=== PATIENT | male | born 1950 | race Two or more races ===

== ENCOUNTER 2018-11-06 08:20 | Inpatient (IN) | payer BC ==
--- NOTE | 2018-11-06 08:46 | PDOC ---
History of Present Illness - General Chief Complaint: Wound Stated Complaint: SENT BY PCP Time Seen by Provider: 11/06/18 08:43 History Source: Patient - History of Present Illness Initial Comments: 11/06/18 09:18 The patient is a 67 year old male with a PMH of AFib (on Eliquis),CHF and HTN who presents for R 1st toe wound. Wound has been present for two months Has been following with a loan broker (Dr. Strickland) with multiple failed outpatient antibiotic trials and was instructed to come to the ED for surgical resection. No fevers/chills. Pain is 1/10. The patient denies chest pain, abdominal pain, nausea/vomiting, diarrhea/ constipation, dysuria/hematuria. NKDA Past History - Past Medical History Allergies/Adverse Reactions: Allergies Allergy/AdvReac Type Severity Reaction Status Date / Time No Known Allergies Allergy Verified 11/06/18 08:27 Home Medications: Ambulatory Orders Apixaban [Eliquis] 5 mg PO BID 11/06/18 Carvedilol 25 mg PO BID 11/06/18 Digoxin [Lanoxin -] 0.125 mg PO DAILY 11/06/18 Furosemide [Lasix] 80 mg PO DAILY 11/06/18 Metolazone 2.5 mg PO DAILY 11/06/18 Pantoprazole Sodium [Protonix] 40 mg PO DAILY 11/06/18 Potassium Chloride [K-Dur -] 20 meq PO BID 11/06/18 Ramipril 10 mg PO DAILY 11/06/18 Sucralfate [Carafate -] 1 gm PO QID 11/06/18 Cardiac Disorders: Yes (CARDIAC STENT) COPD: No - Surgical History Abdominal Surgery: (GASTRIC BYPASS) Cardiac Surgery: (STENT) Cholecystectomy: Yes - Suicide/Smoking/Psychosocial Hx Smoking History: Former smoker Have you smoked in the past 12 months: No If you are a former smoker, when did you quit?: 15 YRS Information on smoking cessation initiated: No Hx Alcohol Use: Yes (GLASS OF WINE PER NIGHT) Drug/Substance Use Hx: No Review of Systems - Review of Systems Constitutional: No: Chills, Fever HEENTM: No: Recent change in vision Respiratory: No: Cough, Shortness of Breath Cardiac (ROS): No: Chest Pain, Lightheadedness, Palpitations ABD/GI: No: Constipated, Diarrhea, Nausea, Vomiting *Physical Exam - Vital Signs Last Vital Signs Temp Pulse Resp BP Pulse Ox 98.3 F 88 16 96/58 L 97 11/06/18 08:24 11/06/18 08:24 11/06/18 08:24 11/06/18 08:24 11/06/18 08:24 - Physical Exam General Appearance: Yes: Nourished, Appropriately Dressed HEENT: positive: Normal Voice, Hearing Grossly Normal Neck: positive: Trachea midline, Supple Respiratory/Chest: positive: Lungs Clear, Normal Breath Sounds Cardiovascular: positive: S1, S2 Gastrointestinal/Abdominal: positive: Normal Bowel Sounds, Soft Extremity: positive: Normal Capillary Refill, Normal Inspection, Other (L hallux Stage III 0.8 cm diameter wound; mild purulent discharge, 2+ DP pulse) Integumentary: positive: Normal Color, Dry, Warm Neurologic: positive: rig manager II-XII NML intact, Fully Oriented, Alert Heart Score/ECG Review - ECG Impressions Comment:: 11/06/18 10:01 HR 79, AFib with no FINA/STD/TWI ED Treatment Course - LABORATORY CBC & Chemistry Diagram: 11/06/18 09:41 11/06/18 09:41 Medical Decision Making - Medical Decision Making 11/06/18 09:21 67 year old male with L hallux wound. BP 96/85 - patient notes h/o LBP, will check VS every 2 hours PE shows no signs of cellulitis; will send wound cultures and obtain pre-op labs. Patient declining pain control at this time. 11/06/18 09:38 Case d/w Dr. Javed - will admit for surgical intervention 11/06/18 10:01 EKG shows AFib as documented in EKG section of EMR 11/06/18 10:12 Consults placed as per Dr. Merida: ID (Dr. Villalobos), Vascular (Dr. Isaacs); MRI pending Clinical Impression: Stage II hallux ulcer *DC/Admit/Observation/Transfer Diagnosis at time of Disposition: Skin ulcer of left great toe - Discharge Dispostion Condition at time of disposition: Fair Decision to Admit order: Yes - Referrals - Patient Instructions - Post Discharge Activity
--- NOTE | 2018-11-06 09:42 | PDOC ---
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 ENT: Ears normal, nares patent, oropharynx clear without exudates. Moist mucous membranes. NECK: Normal range of motion, supple LUNGS: Breath sounds equal, clear to auscultation bilaterally. No wheezes, and no crackles. HEART:Regular rate and rhythm, normal S1 and S2 without murmur, rub or gallop. ABDOMEN: Soft, nontender, normoactive bowel sounds. EXTREMITIES: (+) bilateral pedal edema, (+) venous stasis changes NEUROLOGICAL: Cranial nerves II through XII grossly intact. Normal speech. No focal neurological deficits. SKIN: Warm, Dry, 0.8 cm diameter wound, mild purulent discharge, 2+ DP pulse 11/06/18 11:13 - Medical Decision Making 11/06/18 09:59 EKG: Afib rate of 79 bpm, RBBB, right axis, no st elevation or depressions 11/06/18 11:14 67 yo M sent to the ER for assessment of non healing foot ulcer Plan for surgical intervention per podiatry 11/06/18 11:15 Laboratory Tests 11/06/18 11/06/18 09:41 09:41 WBC 8.0 Hgb 11.7 Hct 36.6 Plt Count 203 BUN 23.2 H Creatinine 1.1 11/06/18 11:15 Plan for admission is MRI of the foot ? Abx 11/06/18 11:18 Clinical Impression: non healing foot ulcer, initial presentation
[2018-11-06 09:58] LABS: BASO % 0.6 % (0-2.0); EOS % 2.4 % (0-4.5); HEMATOCRIT 36.6 % (35.4-49); HEMOGLOBIN 11.7 GM/dL (11.7-16.9); MCH 24.9 pg (25.7-33.7); MEAN CELL VOLUME 77.8 fl (80-96); MEAN PLT VOLUME 8.5 fl (7.5-11.1); MONO % 7.3 % (3.8-10.2); NEUT % 76.7 % (42.8-82.8); PLATELET COUNT 203 K/MM3 (134-434); RBC 4.71 M/mm3 (4.00-5.60); RDW 15.6 % (11.9-15.9)
[2018-11-06 10:10] LABS: INR 1.26 (0.83-1.09); PROTHROMBIN TIME (PATIENT) 14.9 SEC (9.7-13.0)
[2018-11-06 11:00] LABS: ALBUMIN 4.1 g/dl (3.4-5.0); ALK PHOS 96 U/L (45-117); ANION GAP 6 MMOL/L (8-16); BILIRUBIN,TOTAL 0.6 mg/dL (0.2-1); BLOOD UREA NITROGEN 23.2 mg/dL (7-18); CALCIUM 8.7 mg/dL (8.5-10.1); CHLORIDE 98 mmol/L (98-107); CO2 31 mmol/L (21-32); CREATININE 1.1 mg/dL (0.55-1.3); GLUCOSE,RANDOM 113 mg/dL (74-106); POTASSIUM 3.8 mmol/L (3.5-5.1); SGOT/AST 24 U/L (15-37); SGPT/ALT 23 U/L (13-61); SODIUM 136 mmol/L (136-145); TOT PROT 7.3 g/dl (6.4-8.2)
--- NOTE | 2018-11-06 11:24 | HP ---
Admitting History and Physical - Primary Care Physician PCP: Miko Christiansen - Admission Chief Complaint: Wound to great toe L foot History of Present Illness: Patient is a 67 y/o male with past medical history of Afib, HTN, CHF. Patient presents to ER with L foot great toe wound. Patient was following up with private duty rn 2 days ago and was instructed to come to ER for possible surgery. Pain is exacerbated with walking and prolonged standing. Patient says he was treated with antibiotics in past for wound but still was not healing properly. History Source: Patient Limitations to Obtaining History: No Limitations - Past Medical History Cardiovascular: Yes: CAD, CHF, HTN - Past Surgical History Past Surgical History: Yes: Bypass, Cholecystectomy, Stent - Smoking History Smoking history: Former smoker Have you smoked in the past 12 months: No If you are a former smoker, when did you quit?: 15 YRS - Alcohol/Substance Use Hx Alcohol Use: Yes (GLASS OF WINE PER NIGHT) - Social History ADL: Independent History of Recent Travel: No Home Medications - Allergies Allergies/Adverse Reactions: Allergies Allergy/AdvReac Type Severity Reaction Status Date / Time No Known Allergies Allergy Verified 11/06/18 08:27 - Home Medications Home Medications: Ambulatory Orders Apixaban [Eliquis] 5 mg PO BID 11/06/18 Carvedilol 25 mg PO BID 11/06/18 Digoxin [Lanoxin -] 0.125 mg PO DAILY 11/06/18 Furosemide [Lasix] 80 mg PO DAILY 11/06/18 Metolazone 2.5 mg PO DAILY 11/06/18 Pantoprazole Sodium [Protonix] 40 mg PO DAILY 11/06/18 Potassium Chloride [K-Dur -] 20 meq PO BID 11/06/18 Ramipril 10 mg PO DAILY 11/06/18 Sucralfate [Carafate -] 1 gm PO QID 11/06/18 Review of Systems - Review of Systems Constitutional: reports: No Symptoms Eyes: reports: No Symptoms HENT: reports: No Symptoms Neck: reports: No Symptoms Cardiovascular: reports: No Symptoms Respiratory: reports: No Symptoms Gastrointestinal: reports: No Symptoms Genitourinary: reports: No Symptoms Breasts: reports: No Symptoms Reported Musculoskeletal: reports: Other (toe pain) Integumentary: reports: No Symptoms Neurological: reports: Numbness (hands/feet). denies: No Symptoms Endocrine: reports: No Symptoms Hematology/Lymphatic: reports: No Symptoms Psychiatric: reports: No Symptoms Physical Examination Vital Signs: Vital Signs Temperature 98.3 F 11/06/18 08:24 Pulse Rate 88 11/06/18 08:24 Respiratory Rate 16 11/06/18 08:24 Blood Pressure 98/62 11/06/18 10:05 O2 Sat by Pulse Oximetry (%) 97 11/06/18 08:24 Constitutional: Yes: No Distress, Calm Eyes: Yes: Conjunctiva Clear HENT: Yes: Atraumatic Neck: Yes: Supple Cardiovascular: Yes: Regular Rate and Rhythm Respiratory: Yes: Regular, CTA Bilaterally Gastrointestinal: Yes: Normal Bowel Sounds, Soft Musculoskeletal: Yes: Other (toe pain) Extremities: Yes: WNL Edema: Yes Edema: LLE: 2+ Wound/Incision: Yes: Dressing Dry and Intact, Other (L great toe posterior circular wound) Neurological: Yes: Alert, Oriented Psychiatric: Yes: Alert, Oriented Labs: CBC, BMP 11/06/18 09:41 11/06/18 09:41 Problem List - Problems (1) Skin ulcer of left great toe Assessment/Plan: -ID, Podiatry, Vascular on board -daily dressing changes -Collegenase -Ceftriaxone -no leukocytosis -afebrile Code(s): L97.529 - NON-PRESSURE CHRONIC ULCER OTH PRT LEFT FOOT W UNSP SEVERITY (2) HTN (hypertension) Assessment/Plan: -Carvedilol, Ramipril -low Na diet Code(s): I10 - ESSENTIAL (PRIMARY) HYPERTENSION (3) CAD (coronary artery disease) Assessment/Plan: -Eliquis Code(s): I25.10 - ATHSCL HEART DISEASE OF [place] CORONARY ARTERY W/O ANG PCTRS (4) CHF (congestive heart failure) Assessment/Plan: -Furosemide, Zaroxolyn, Digoxin -1L fluid restriction -daily weights -monitor electrolyte due to diuretic use Code(s): I50.9 - HEART FAILURE, UNSPECIFIED (5) GERD (gastroesophageal reflux disease) Assessment/Plan: -Pantoprazole, Carafate Code(s): K21.9 - GASTRO-ESOPHAGEAL REFLUX DISEASE WITHOUT ESOPHAGITIS Assessment/Plan see problem list SCDs
[2018-11-06] MEDS: CARVEDILOL 25 MG TABLET (FP) PO SCH ×2 (11:35→21:28)
[2018-11-06] MEDS: POTASSIUM CHLORIDE TABS 20 MEQ TABLET.ER (FP) PO SCH ×2 (11:35→21:28)
[2018-11-06] MEDS: RAMIPRIL 5 MG CAPSULE (FP) PO SCH (11:35)
[2018-11-06] MEDS: FUROSEMIDE 40 MG TABLET (FP) PO SCH (11:36)
[2018-11-06] MEDS: DIGOXIN 0.125 MG TABLET (FP) PO SCH (11:38)
[2018-11-06] MEDS: APIXABAN 5 MG TABLET PO SCH ×2 (12:34→21:28)
[2018-11-06] MEDS: COLLAGENASE CLOSTRIDIUM HIST. 30 GRAMS TUBE TP SCH (12:35)
[2018-11-06 13:23] VITALS: BMI 34.2
--- NOTE | 2018-11-06 14:34 | CON.ID ---
Consult - Past Medical History Cardio/Vascular: Yes: CAD, CHF, HTN - Past Surgical History Past Surgical History: Yes: Bypass, Cholecystectomy, Stent - Alcohol/Substance Use Hx Alcohol Use: Yes (GLASS OF WINE PER NIGHT) - Smoking History Smoking history: Current every day smoker Have you smoked in the past 12 months: Yes Aproximately how many cigarettes per day: 40 If you are a former smoker, when did you quit?: 15 YRS - Social History ADL: Independent History of Recent Travel: No Home Medications - Allergies Allergies/Adverse Reactions: Allergies Allergy/AdvReac Type Severity Reaction Status Date / Time No Known Allergies Allergy Verified 11/06/18 08:27 - Home Medications Home Medications: Ambulatory Orders Apixaban [Eliquis] 5 mg PO BID 11/06/18 Carvedilol 25 mg PO BID 11/06/18 Digoxin [Lanoxin -] 0.125 mg PO DAILY 11/06/18 Furosemide [Lasix] 80 mg PO DAILY 11/06/18 Metolazone 2.5 mg PO DAILY 11/06/18 Pantoprazole Sodium [Protonix] 40 mg PO DAILY 11/06/18 Potassium Chloride [K-Dur -] 20 meq PO BID 11/06/18 Ramipril 10 mg PO DAILY 11/06/18 Sucralfate [Carafate -] 1 gm PO QID 11/06/18 Physical Exam Vital Signs: Vital Signs Temperature 97.9 F 11/06/18 13:10 Pulse Rate 80 11/06/18 13:10 Respiratory Rate 18 11/06/18 13:10 Blood Pressure 98/56 L 11/06/18 13:10 O2 Sat by Pulse Oximetry (%) 95 11/06/18 13:10 Labs: CBC, BMP 11/06/18 09:41 11/06/18 09:41
[2018-11-06] MEDS ORDERED: DEXTROSE 5%-WATER 100 ML IVPB ONE (16:18)
[2018-11-06] MEDS ORDERED: cefTRIAXone SODIUM 1 GM VIAL ONE (16:18)
[2018-11-06] MEDS: SUCRALFATE 1 GM TABLET (FP) PO SCH ×3 (16:18→21:28)
[2018-11-06] MEDS: CEFTRIAXONE 1 GM in DEXTROSE 5%-WATER 100 ML IVPB SCH (16:19)
--- NOTE | 2018-11-06 16:45 | EKG ---
Test Reason : Blood Pressure : / mmHG Vent. Rate : 079 BPM Atrial Rate : 097 BPM P-R Int : 000 ms QRS Dur : 150 ms QT Int : 402 ms P-R-T Axes : 000 102 006 degrees QTc Int : 460 ms ATRIAL FIBRILLATION RIGHT BUNDLE BRANCH BLOCK INFERIOR INFARCT , AGE UNDETERMINED ANTEROLATERAL INFARCT , AGE UNDETERMINED ABNORMAL ECG NO PREVIOUS ECGS AVAILABLE Confirmed by BRICE PARSON MD ([id number]) on 11/06/2018 4:44:48 PM Referred By: Confirmed By:BRICE PARSON MD
--- NOTE | 2018-11-06 20:49 | CONSULT ---
Consult Consult Specialty:: Podiatry Reason for Consultation:: Pt sent to me by PMD for chronic ulceration left 3rd toe for 3 months, - History of Present Illness History of Present Illness: ulceration left third toe 3 months duration. - History Source History Provided By: Patient - Past Medical History Cardio/Vascular: Yes: CAD, CHF, HTN - Past Surgical History Past Surgical History: Yes: Bypass, Cholecystectomy, Stent - Alcohol/Substance Use Hx Alcohol Use: Yes (GLASS OF WINE PER NIGHT) - Smoking History Smoking history: Former smoker Have you smoked in the past 12 months: No Aproximately how many cigarettes per day: 40 If you are a former smoker, when did you quit?: 15 YRS - Social History ADL: Independent History of Recent Travel: No Home Medications - Allergies Allergies/Adverse Reactions: Allergies Allergy/AdvReac Type Severity Reaction Status Date / Time No Known Allergies Allergy Verified 11/06/18 08:27 - Home Medications Home Medications: Ambulatory Orders Apixaban [Eliquis] 5 mg PO BID 11/06/18 Carvedilol 25 mg PO BID 11/06/18 Digoxin [Lanoxin -] 0.125 mg PO DAILY 11/06/18 Furosemide [Lasix] 80 mg PO DAILY 11/06/18 Metolazone 2.5 mg PO DAILY 11/06/18 Pantoprazole Sodium [Protonix] 40 mg PO DAILY 11/06/18 Potassium Chloride [K-Dur -] 20 meq PO BID 11/06/18 Ramipril 10 mg PO DAILY 11/06/18 Sucralfate [Carafate -] 1 gm PO QID 11/06/18 Physical Exam Vital Signs: Vital Signs Temperature 97.9 F 11/06/18 13:10 Pulse Rate 80 11/06/18 13:10 Respiratory Rate 18 11/06/18 13:10 Blood Pressure 98/56 L 11/06/18 13:10 O2 Sat by Pulse Oximetry (%) 95 11/06/18 13:10 Extremities: Yes: Other (+grade 3 wound left hallux, severe HAV, +tracking, + trackbound, +severe edema b/l feet and ankles) Labs: CBC, BMP 11/06/18 09:41 11/06/18 09:41 Assessment/Plan om? severe edema b/l amkles hav MRI to r/o om. If no om, once wound healed, patient requires surgical repair of deformity left foot. If om will go with IVABX and HBO with wound care. Will follow. CRP, ESR, ordered. Santyl to wound. Evaluation by Vascular for clearance and tx for possible intervention by me to repair deformity left foot. will follow. Awaiting MRI result.
[2018-11-06] MEDS ORDERED: PT OWN MED DRAWER 7, Y5N ONE (21:21)
[2018-11-07 07:38] LABS: BASO % 0.6 % (0-2.0); EOS % 3.5 % (0-4.5); HEMATOCRIT 32.9 % (35.4-49); HEMOGLOBIN 10.6 GM/dL (11.7-16.9); LYMPH % 19.2 % (8-40); MCHC 32.3 g/dl (32.0-35.9); MEAN CELL VOLUME 77.3 fl (80-96); MEAN PLT VOLUME 8.5 fl (7.5-11.1); MONO % 8.1 % (3.8-10.2); NEUT % 68.6 % (42.8-82.8); PLATELET COUNT 176 K/MM3 (134-434); RBC 4.26 M/mm3 (4.00-5.60); RDW 15.5 % (11.9-15.9); WHITE BLOOD COUNT 7.6 K/mm3 (4.0-10.0)
[2018-11-07 08:28] LABS: ALBUMIN 3.5 g/dl (3.4-5.0); BILIRUBIN,TOTAL 0.6 mg/dL (0.2-1); BLOOD UREA NITROGEN 18.6 mg/dL (7-18); CALCIUM 8.6 mg/dL (8.5-10.1); CREATININE 0.8 mg/dL (0.55-1.3); MAGNESIUM 2.1 mg/dL (1.8-2.4); PHOSPHOROUS 3.5 mg/dL (2.5-4.9); POTASSIUM 3.8 mmol/L (3.5-5.1); TOT PROT 6.2 g/dl (6.4-8.2)
--- NOTE | 2018-11-07 08:55 | CONSULT ---
- Consultation REQUESTING PROVIDER: CONSULT REQUEST: We have been asked to surgically evaluate this patient for ( vascular evaluation). PCP:Selina Javed HISTORY OF PRESENT ILLNESS: 67 y/o M w/ PMHx Afib on Eliquis, CAD s/p cardiac stent, HTN, CHF, prior morbid obesity, s/p bypass a/w L foot great toe wound. Pt report he saw his Investment Recovery Technician 2 days ago and was instructed to come to ER for possible surgery. Reports he was unaware he has any wounds on his foot. Reports some pain is exacerbated with walking and prolonged standing. 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 States he has had some issues in the past with venous stasis ulcers and edema, however was treated at that time (>15 years ago) with Unna boots, ulcers healed without issue and has not had recurrence since. Has remote h/o tobacco abuse many years ago, no known vascular disease/prior vascular evaluation. Denies h/o DVT/pe in the past. PMHx: as above PSHx: gastric bypass, appendectomy, cholecystectomy, coronary stent Home Medications Medication Instructions Recorded Apixaban [Eliquis] 5 mg PO BID 11/06/18 Carvedilol 25 mg PO BID 11/06/18 Digoxin [Lanoxin -] 0.125 mg PO DAILY 11/06/18 Furosemide [Lasix] 80 mg PO DAILY 11/06/18 Metolazone 2.5 mg PO DAILY 11/06/18 Pantoprazole Sodium [Protonix] 40 mg PO DAILY 11/06/18 Potassium Chloride [K-Dur -] 20 meq PO BID 11/06/18 Ramipril 10 mg PO DAILY 11/06/18 Sucralfate [Carafate -] 1 gm PO QID 11/06/18 Allergies Allergy/AdvReac Type Severity Reaction Status Date / Time No Known Allergies Allergy Verified 11/06/18 08:27 REVIEW OF SYSTEMS: CONSTITUTIONAL: Absent: fever, chills CARDIOVASCULAR: Absent: chest pain RESPIRATORY: Absent: cough, shortness of breath GASTROINTESTINAL: Absent: abdominal pain PHYSICAL EXAM: GENERAL: Awake, alert, and fully oriented, in no acute distress. HEAD: Normal with no signs of trauma. LUNGS: Unlabored on RA. No accessory muscle use. LOWER EXTREMITIES: B/L les with swelling most prominent around the ankles, consistent w/ lymphadema, Hyperpigmentation along anterior shins, no open wounds. L great toe with approx 2x2cm callus medially with soft eschar at center. Eschar does not probe, no erythema, no drainage, no ttp. Vasc: B/L DPs 2+ pulses. Feet, warm, well-perfused. No calf tenderness. Vital Signs Temperature 98.6 F 11/07/18 05:31 Pulse Rate 79 11/07/18 05:31 Respiratory Rate 18 11/07/18 05:31 Blood Pressure 101/54 L 11/07/18 05:31 O2 Sat by Pulse Oximetry (%) 97 11/06/18 21:00 Lab Results WBC 7.6 K/mm3 (4.0-10.0) 11/07/18 06:54 RBC 4.26 M/mm3 (4.00-5.60) 11/07/18 06:54 Hgb 10.6 GM/dL (11.7-16.9) L 11/07/18 06:54 Hct 32.9 % (35.4-49) L 11/07/18 06:54 MCV 77.3 fl (80-96) L 11/07/18 06:54 MCHC 32.3 g/dl (32.0-35.9) 11/07/18 06:54 RDW 15.5 % (11.9-15.9) 11/07/18 06:54 Plt Count 176 K/MM3 (134-434) 11/07/18 06:54 Sodium 135 mmol/L (136-145) L 11/07/18 06:54 Potassium 3.8 mmol/L (3.5-5.1) 11/07/18 06:54 Chloride 100 mmol/L (98-107) 11/07/18 06:54 Carbon Dioxide 31 mmol/L (21-32) 11/07/18 06:54 Anion Gap 5 MMOL/L (8-16) L 11/07/18 06:54 BUN 18.6 mg/dL (7-18) H 11/07/18 06:54 Creatinine 0.8 mg/dL (0.55-1.3) 11/07/18 06:54 Random Glucose 88 mg/dL (74-106) 11/07/18 06:54 Calcium 8.6 mg/dL (8.5-10.1) 11/07/18 06:54 Blood Type A POSITIVE 11/06/18 12:23 Antibody Screen Negative 11/06/18 09:41 INR 1.26 (0.83-1.09) H 11/06/18 09:41 A/P: 67 y/o M w/ PMHx Afib on Eliquis, CAD s/p cardiac stent, HTN, CHF, prior morbid obesity, s/p bypass a/w L foot great toe wound. Left great toe with callus, no clinical signs of infection. Afebrile, no leukocytosis. Palpable dp b/l -no acute vascular intervention at this time -f/u mri -plan per primary team/podiatry d/w attending Dr Isaacs
[2018-11-07] MEDS ORDERED: cefTRIAXone SODIUM 1 GM VIAL ONE (09:19)
[2018-11-07] MEDS ORDERED: DEXTROSE 5%-WATER 100 ML IVPB ONE (09:20)
[2018-11-07] MEDS: DIGOXIN 0.125 MG TABLET (FP) PO SCH (09:22)
[2018-11-07] MEDS: POTASSIUM CHLORIDE TABS 20 MEQ TABLET.ER (FP) PO SCH ×2 (09:22→21:54)
[2018-11-07] MEDS: PANTOPRAZOLE 40 MG TABLET (FP) PO SCH (09:22)
[2018-11-07] MEDS: RAMIPRIL 5 MG CAPSULE (FP) PO SCH (09:22)
[2018-11-07] MEDS: CARVEDILOL 25 MG TABLET (FP) PO SCH ×2 (09:23→21:54)
[2018-11-07] MEDS: APIXABAN 5 MG TABLET PO SCH ×2 (09:23→21:54)
[2018-11-07] MEDS: CEFTRIAXONE 1 GM in DEXTROSE 5%-WATER 100 ML IVPB SCH (09:23)
[2018-11-07] MEDS: FUROSEMIDE 40 MG TABLET (FP) PO SCH (09:23)
[2018-11-07] MEDS: COLLAGENASE CLOSTRIDIUM HIST. 30 GRAMS TUBE TP SCH (09:25)
[2018-11-07] MEDS: METOLAZONE 2.5 MG TABLET (FP) PO SCH (10:26)
[2018-11-07] MEDS: SUCRALFATE 1 GM TABLET (FP) PO SCH ×4 (10:26→21:54)
--- NOTE | 2018-11-07 12:24 | CON.ID ---
Consult Consult Specialty:: infectious diseases Referred by:: Reason for Consultation:: non healing ulcer of the rt toe - History of Present Illness Chief Complaint: non healing ulcer of the great toe rt foot History of Present Illness: 67 y/o male with past medical history of Afib, HTN, CHF. admitted with L foot great toe wound. Patient was following up with hotel services supervisor 2 days ago and was instructed to come to ER for possible surgery. Pain is exacerbated with walking and prolonged standing. 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 - History Source History Provided By: Patient Limitations to Obtaining History: No Limitations - Past Medical History Cardio/Vascular: Yes: CAD, CHF, HTN - Past Surgical History Past Surgical History: Yes: Bypass, Cholecystectomy, Stent - Alcohol/Substance Use Hx Alcohol Use: Yes (GLASS OF WINE PER NIGHT) - Smoking History Smoking history: Former smoker Have you smoked in the past 12 months: No Aproximately how many cigarettes per day: 40 If you are a former smoker, when did you quit?: 15 YRS - Social History ADL: Independent History of Recent Travel: No Home Medications - Allergies Allergies/Adverse Reactions: Allergies Allergy/AdvReac Type Severity Reaction Status Date / Time No Known Allergies Allergy Verified 11/06/18 08:27 - Home Medications Home Medications: Ambulatory Orders Apixaban [Eliquis] 5 mg PO BID 11/06/18 Carvedilol 25 mg PO BID 11/06/18 Digoxin [Lanoxin -] 0.125 mg PO DAILY 11/06/18 Furosemide [Lasix] 80 mg PO DAILY 11/06/18 Metolazone 2.5 mg PO DAILY 11/06/18 Pantoprazole Sodium [Protonix] 40 mg PO DAILY 11/06/18 Potassium Chloride [K-Dur -] 20 meq PO BID 11/06/18 Ramipril 10 mg PO DAILY 11/06/18 Sucralfate [Carafate -] 1 gm PO QID 11/06/18 Review of Systems - Review of Systems Constitutional: reports: No Symptoms Eyes: reports: No Symptoms HENT: reports: No Symptoms Neck: reports: No Symptoms Cardiovascular: reports: No Symptoms Respiratory: reports: No Symptoms Gastrointestinal: reports: No Symptoms Genitourinary: reports: No Symptoms Musculoskeletal: reports: Other Integumentary: reports: Lesions (on the rt great toes) Neurological: reports: No Symptoms Endocrine: reports: No Symptoms Hematology/Lymphatic: reports: No Symptoms Psychiatric: reports: No Symptoms Physical Exam Vital Signs: Vital Signs Temperature 98.4 F 11/07/18 09:21 Pulse Rate 88 11/07/18 09:22 Respiratory Rate 20 11/07/18 09:21 Blood Pressure 116/70 11/07/18 09:21 O2 Sat by Pulse Oximetry (%) 96 11/07/18 10:00 Constitutional: Yes: Well Nourished, No Distress, Calm Eyes: Yes: Conjunctiva Clear Cardiovascular: Yes: Pulse Irregular Respiratory: Yes: Regular, CTA Bilaterally Gastrointestinal: Yes: Normal Bowel Sounds, Soft Musculoskeletal: Yes: WNL Extremities: Yes: Other (non healing ulcer on the rt great toe) Neurological: Yes: Alert, Oriented Psychiatric: Yes: Alert, Oriented Labs: CBC, BMP 11/07/18 06:54 11/07/18 06:54 Imaging - Results Chest X-ray: Report Reviewed, Image Reviewed MRI: Report Reviewed, Image Reviewed Assessment/Plan Problem List - Problems (1) Skin ulcer of left great toe Code(s): L97.529 - NON-PRESSURE CHRONIC ULCER OTH PRT LEFT FOOT W UNSP SEVERITY (2) HTN (hypertension) Code(s): I10 - ESSENTIAL (PRIMARY) HYPERTENSION (3) CAD (coronary artery disease) Code(s): I25.10 - ATHSCL HEART DISEASE OF [place] CORONARY ARTERY W/O ANG PCTRS (4) CHF (congestive heart failure) Code(s): I50.9 - HEART FAILURE, UNSPECIFIED (5) GERD (gastroesophageal reflux disease) Code(s): K21.9 - GASTRO-ESOPHAGEAL REFLUX DISEASE WITHOUT ESOPHAGITIS plan will start on abx wound care rest as per the team await for finalization of cx
[2018-11-07] MEDS ORDERED: PIPERACILLIN/TAZOBACTAM 3.375 GM VIAL IVPB ONE ×2 (13:11→16:52)
[2018-11-07] MEDS ORDERED: DEXTROSE 5%-WATER - 50 ML IVPB ONE ×2 (13:11→16:53)
[2018-11-07] MEDS: PIPERACILLIN/TAZOB 3.375 GM 3.375 GM in DEXTROSE 5%-WATER - 50 ML IVPB SCH ×2 (13:14→17:52)
--- NOTE | 2018-11-07 15:06 | PN ---
Progress Note, Physician Chief Complaint: L great toe ulcer History of Present Illness: Previous notes and events reviewed awake and alert NAD MRI of Left lower extremity done no complaints of pain verbalized wound culture positive - Current Medication List Current Medications: Active Medications Apixaban (Eliquis -) 5 mg PO BID [facility] Last Admin: 11/07/18 09:23 Dose: 5 mg Carvedilol (Coreg -) 25 mg PO BID [facility] Last Admin: 11/07/18 09:23 Dose: 25 mg Collagenase (Santyl -) 1 applic TP DAILY [facility]; Protocol Last Admin: 11/07/18 09:25 Dose: 1 applic Digoxin (Lanoxin -) 0.125 mg PO DAILY [facility] Last Admin: 11/07/18 09:22 Dose: 0.125 mg Furosemide (Lasix -) 80 mg PO DAILY [facility] Last Admin: 11/07/18 09:23 Dose: 80 mg Piperacillin Sod/Tazobactam (Sod 3.375 gm/ Dextrose) 50 mls @ 100 mls/hr IVPB Q8H-IV [facility]; Protocol Last Admin: 11/07/18 13:14 Dose: 100 mls/hr Metolazone (Zaroxolyn -) 2.5 mg PO 0930 [facility] Last Admin: 11/07/18 10:26 Dose: 2.5 mg Pantoprazole Sodium (Protonix -) 40 mg PO DAILY [facility] Last Admin: 11/07/18 09:22 Dose: 40 mg Potassium Chloride (K-Dur -) 20 meq PO BID [facility] Last Admin: 11/07/18 09:22 Dose: 20 meq Ramipril (Altace -) 10 mg PO DAILY [facility] Last Admin: 11/07/18 09:22 Dose: 10 mg Sucralfate (Carafate -) 1 gm PO QID [facility] Last Admin: 11/07/18 14:11 Dose: 1 gm - Objective Vital Signs: Vital Signs Temperature 98.4 F 11/07/18 09:21 Pulse Rate 88 11/07/18 09:22 Respiratory Rate 20 11/07/18 09:21 Blood Pressure 116/70 11/07/18 09:21 O2 Sat by Pulse Oximetry (%) 96 11/07/18 10:00 Constitutional: Yes: No Distress, Calm Eyes: Yes: Conjunctiva Clear HENT: Yes: Atraumatic Cardiovascular: Yes: Regular Rate and Rhythm Respiratory: Yes: Regular, CTA Bilaterally Gastrointestinal: Yes: Normal Bowel Sounds, Soft Musculoskeletal: Yes: Muscle Weakness Extremities: Yes: WNL Edema: Yes Edema: LLE: 2+ Wound/Incision: Yes: Dressing Dry and Intact Neurological: Yes: Alert, Oriented Psychiatric: Yes: Alert, Oriented Labs: CBC, BMP 11/07/18 06:54 11/07/18 06:54 INR, PTT INR 1.26 (0.83-1.09) H 11/06/18 09:41 Microbiology 11/06/18 09:15 Toe - Left Hallux Gram Stain - Final 11/06/18 09:15 Toe - Left Hallux Wound Culture - Preliminary Presumptive Ps Aeruginosa Group D Strep Or Entero Coccus - ....Imaging Ultrasound: Report Reviewed MRI: Report Reviewed Problem List - Problems (1) Skin ulcer of left great toe Assessment/Plan: -ID, Podiatry, Vascular on board -daily dressing changes -Collegenase -Zosyn -no leukocytosis -afebrile -wound culture positive -MRI shows question of hazy bone marrow edema of the distal phalanx of first toe however nonspecific and could be due to motion artifact or represent reactive osteitis however early osteomyelitis cant be ruled out Code(s): L97.529 - NON-PRESSURE CHRONIC ULCER OTH PRT LEFT FOOT W UNSP SEVERITY (2) HTN (hypertension) Assessment/Plan: -Carvedilol, Ramipril -low Na diet Code(s): I10 - ESSENTIAL (PRIMARY) HYPERTENSION (3) CAD (coronary artery disease) Assessment/Plan: -Eliquis Code(s): I25.10 - ATHSCL HEART DISEASE OF [place] CORONARY ARTERY W/O ANG PCTRS (4) CHF (congestive heart failure) Assessment/Plan: -Furosemide, Zaroxolyn, Digoxin -1L fluid restriction -daily weights -monitor electrolyte due to diuretic use Code(s): I50.9 - HEART FAILURE, UNSPECIFIED (5) GERD (gastroesophageal reflux disease) Assessment/Plan: -Pantoprazole, Carafate Code(s): K21.9 - GASTRO-ESOPHAGEAL REFLUX DISEASE WITHOUT ESOPHAGITIS Assessment/Plan see problem list SCDs
--- NOTE | 2018-11-07 19:52 | PN ---
Progress Note, Physician Chief Complaint: Wound left great toe. - Current Medication List Current Medications: Active Medications Apixaban (Eliquis -) 5 mg PO BID [facility] Last Admin: 11/07/18 09:23 Dose: 5 mg Carvedilol (Coreg -) 25 mg PO BID [facility] Last Admin: 11/07/18 09:23 Dose: 25 mg Collagenase (Santyl -) 1 applic TP DAILY [facility]; Protocol Last Admin: 11/07/18 09:25 Dose: 1 applic Digoxin (Lanoxin -) 0.125 mg PO DAILY [facility] Last Admin: 11/07/18 09:22 Dose: 0.125 mg Furosemide (Lasix -) 80 mg PO DAILY [facility] Last Admin: 11/07/18 09:23 Dose: 80 mg Piperacillin Sod/Tazobactam (Sod 3.375 gm/ Dextrose) 50 mls @ 100 mls/hr IVPB Q8H-IV [facility]; Protocol Last Admin: 11/07/18 17:52 Dose: 100 mls/hr Metolazone (Zaroxolyn -) 2.5 mg PO 0930 [facility] Last Admin: 11/07/18 10:26 Dose: 2.5 mg Pantoprazole Sodium (Protonix -) 40 mg PO DAILY [facility] Last Admin: 11/07/18 09:22 Dose: 40 mg Potassium Chloride (K-Dur -) 20 meq PO BID [facility] Last Admin: 11/07/18 09:22 Dose: 20 meq Ramipril (Altace -) 10 mg PO DAILY [facility] Last Admin: 11/07/18 09:22 Dose: 10 mg Sucralfate (Carafate -) 1 gm PO QID [facility] Last Admin: 11/07/18 17:52 Dose: 1 gm - Objective Vital Signs: Vital Signs Temperature 98.4 F 11/07/18 09:21 Pulse Rate 88 11/07/18 09:22 Respiratory Rate 20 11/07/18 09:21 Blood Pressure 116/70 11/07/18 09:21 O2 Sat by Pulse Oximetry (%) 96 11/07/18 10:00 Extremities: Yes: Other (+improved edema, +granulating wound left hallux, + severe hav, +changes on MRI, +growth on wound culture) Labs: CBC, BMP 11/07/18 06:54 11/07/18 06:54 INR, PTT INR 1.26 (0.83-1.09) H 11/06/18 09:41 Assessment/Plan om? improved edema ankles hav Patient requires surgical repair of deformity left foot. Recommend tx with abx and hbo due to chronicity of wound. Discussed with ID. [place] to wound. will follow. Read and appreciated vascular note. Discussed at length need for repair/reconstruct 1st mpj left. Discussed necessity for offloading. Patient willing to do whatever is necessary going forward.
[2018-11-07] MEDS ORDERED: PT OWN MED DRAWER 7, Y5N ONE (21:48)
[2018-11-08] MEDS ORDERED: PIPERACILLIN/TAZOBACTAM 3.375 GM VIAL IVPB ONE ×3 (01:43→18:24)
[2018-11-08] MEDS ORDERED: DEXTROSE 5%-WATER - 50 ML IVPB ONE ×3 (01:43→18:24)
[2018-11-08] MEDS: PIPERACILLIN/TAZOB 3.375 GM 3.375 GM in DEXTROSE 5%-WATER - 50 ML IVPB SCH ×3 (01:45→18:35)
[2018-11-08 07:32] LABS: HEMATOCRIT 33.1 % (35.4-49); HEMOGLOBIN 10.6 GM/dL (11.7-16.9); MCH 24.8 pg (25.7-33.7); MEAN CELL VOLUME 77.5 fl (80-96); MEAN PLT VOLUME 8.7 fl (7.5-11.1); PLATELET COUNT 180 K/MM3 (134-434); RBC 4.26 M/mm3 (4.00-5.60); RDW 15.5 % (11.9-15.9); WHITE BLOOD COUNT 7.3 K/mm3 (4.0-10.0)
[2018-11-08 08:05] LABS: ALBUMIN 3.4 g/dl (3.4-5.0); BILIRUBIN,TOTAL 0.6 mg/dL (0.2-1); BLOOD UREA NITROGEN 15.8 mg/dL (7-18); CALCIUM 8.4 mg/dL (8.5-10.1); CREATININE 0.9 mg/dL (0.55-1.3); POTASSIUM 3.7 mmol/L (3.5-5.1); TOT PROT 6.2 g/dl (6.4-8.2)
--- NOTE | 2018-11-08 08:25 | PN ---
Progress Note, Physician Chief Complaint: L great toe ulcer History of Present Illness: Previous notes and events reviewed awake and alert NAD MRI of Left lower extremity done wound culture positive - Current Medication List Current Medications: Active Medications Apixaban (Eliquis -) 5 mg PO BID [facility] Last Admin: 11/07/18 21:54 Dose: 5 mg Carvedilol (Coreg -) 25 mg PO BID [facility] Last Admin: 11/07/18 21:54 Dose: 25 mg Collagenase (Santyl -) 1 applic TP DAILY [facility]; Protocol Last Admin: 11/07/18 09:25 Dose: 1 applic Digoxin (Lanoxin -) 0.125 mg PO DAILY [facility] Last Admin: 11/07/18 09:22 Dose: 0.125 mg Furosemide (Lasix -) 80 mg PO DAILY [facility] Last Admin: 11/07/18 09:23 Dose: 80 mg Piperacillin Sod/Tazobactam (Sod 3.375 gm/ Dextrose) 50 mls @ 100 mls/hr IVPB Q8H-IV [facility]; Protocol Last Admin: 11/08/18 01:45 Dose: 100 mls/hr Metolazone (Zaroxolyn -) 2.5 mg PO 0930 [facility] Last Admin: 11/07/18 10:26 Dose: 2.5 mg Pantoprazole Sodium (Protonix -) 40 mg PO DAILY [facility] Last Admin: 11/07/18 09:22 Dose: 40 mg Potassium Chloride (K-Dur -) 20 meq PO BID [facility] Last Admin: 11/07/18 21:54 Dose: 20 meq Ramipril (Altace -) 10 mg PO DAILY [facility] Last Admin: 11/07/18 09:22 Dose: 10 mg Sucralfate (Carafate -) 1 gm PO QID [facility] Last Admin: 11/07/18 21:54 Dose: 1 gm - Objective Vital Signs: Vital Signs Temperature 98.4 F 11/07/18 09:21 Pulse Rate 88 11/07/18 09:22 Respiratory Rate 20 11/07/18 09:21 Blood Pressure 116/70 11/07/18 09:21 O2 Sat by Pulse Oximetry (%) 96 11/07/18 22:00 Constitutional: Yes: No Distress, Calm Eyes: Yes: Conjunctiva Clear HENT: Yes: Atraumatic Cardiovascular: Yes: Regular Rate and Rhythm Respiratory: Yes: Regular, CTA Bilaterally Gastrointestinal: Yes: Normal Bowel Sounds, Soft Musculoskeletal: Yes: WNL Extremities: Yes: WNL Edema: Yes Integumentary: Yes: Other (L great toe edema and erythema) Wound/Incision: Yes: Open to air, Other Neurological: Yes: Alert, Oriented Psychiatric: Yes: Alert, Oriented Labs: CBC, BMP 11/08/18 06:51 11/08/18 06:51 INR, PTT INR 1.26 (0.83-1.09) H 11/06/18 09:41 Problem List - Problems (1) Skin ulcer of left great toe Assessment/Plan: -ID, Podiatry, Vascular on board -daily dressing changes -Collegenase -Zosyn -no leukocytosis -afebrile -wound culture positive -MRI shows question of hazy bone marrow edema of the distal phalanx of first toe however nonspecific and could be due to motion artifact or represent reactive osteitis however early osteomyelitis cant be ruled out -will need PICC line insertion for manager long term care ABT Code(s): L97.529 - NON-PRESSURE CHRONIC ULCER OTH PRT LEFT FOOT W UNSP SEVERITY (2) HTN (hypertension) Assessment/Plan: -Carvedilol, Ramipril -low Na diet Code(s): I10 - ESSENTIAL (PRIMARY) HYPERTENSION (3) CAD (coronary artery disease) Assessment/Plan: -Eliquis Code(s): I25.10 - ATHSCL HEART DISEASE OF [place] CORONARY ARTERY W/O ANG PCTRS (4) CHF (congestive heart failure) Assessment/Plan: -Furosemide, Zaroxolyn, Digoxin -1L fluid restriction -daily weights -monitor electrolyte due to diuretic use Code(s): I50.9 - HEART FAILURE, UNSPECIFIED (5) GERD (gastroesophageal reflux disease) Assessment/Plan: -Pantoprazole, Carafate Code(s): K21.9 - GASTRO-ESOPHAGEAL REFLUX DISEASE WITHOUT ESOPHAGITIS Assessment/Plan see problem list SCDs
--- NOTE | 2018-11-08 08:26 | PN ---
Progress Note, Physician Chief Complaint: Wound left great toe. History of Present Illness: ulceration left third toe 3 months duration. - Current Medication List Current Medications: Active Medications Apixaban (Eliquis -) 5 mg PO BID [facility] Last Admin: 11/07/18 21:54 Dose: 5 mg Carvedilol (Coreg -) 25 mg PO BID [facility] Last Admin: 11/07/18 21:54 Dose: 25 mg Collagenase (Santyl -) 1 applic TP DAILY [facility]; Protocol Last Admin: 11/07/18 09:25 Dose: 1 applic Digoxin (Lanoxin -) 0.125 mg PO DAILY [facility] Last Admin: 11/07/18 09:22 Dose: 0.125 mg Furosemide (Lasix -) 80 mg PO DAILY [facility] Last Admin: 11/07/18 09:23 Dose: 80 mg Piperacillin Sod/Tazobactam (Sod 3.375 gm/ Dextrose) 50 mls @ 100 mls/hr IVPB Q8H-IV [facility]; Protocol Last Admin: 11/08/18 01:45 Dose: 100 mls/hr Metolazone (Zaroxolyn -) 2.5 mg PO 0930 [facility] Last Admin: 11/07/18 10:26 Dose: 2.5 mg Pantoprazole Sodium (Protonix -) 40 mg PO DAILY [facility] Last Admin: 11/07/18 09:22 Dose: 40 mg Potassium Chloride (K-Dur -) 20 meq PO BID [facility] Last Admin: 11/07/18 21:54 Dose: 20 meq Ramipril (Altace -) 10 mg PO DAILY [facility] Last Admin: 11/07/18 09:22 Dose: 10 mg Sucralfate (Carafate -) 1 gm PO QID [facility] Last Admin: 11/07/18 21:54 Dose: 1 gm - Objective Vital Signs: Vital Signs Temperature 98.4 F 11/07/18 09:21 Pulse Rate 88 11/07/18 09:22 Respiratory Rate 20 11/07/18 09:21 Blood Pressure 116/70 11/07/18 09:21 O2 Sat by Pulse Oximetry (%) 96 11/07/18 22:00 Extremities: Yes: Other (+improved wound left big toe,) Labs: CBC, BMP 11/08/18 06:51 11/08/18 06:51 INR, PTT INR 1.26 (0.83-1.09) H 11/06/18 09:41 Assessment/Plan om? improved edema ankles hav Patient eager to go home. Discussed with PA. Will follow till dc. Xray today for pre-op eval.
--- NOTE | 2018-11-08 08:36 | PN ---
Progress Note, Physician History of Present Illness: stable no complaints - Current Medication List Current Medications: Active Medications Apixaban (Eliquis -) 5 mg PO BID [facility] Last Admin: 11/07/18 21:54 Dose: 5 mg Carvedilol (Coreg -) 25 mg PO BID [facility] Last Admin: 11/07/18 21:54 Dose: 25 mg Collagenase (Santyl -) 1 applic TP DAILY [facility]; Protocol Last Admin: 11/07/18 09:25 Dose: 1 applic Digoxin (Lanoxin -) 0.125 mg PO DAILY [facility] Last Admin: 11/07/18 09:22 Dose: 0.125 mg Furosemide (Lasix -) 80 mg PO DAILY [facility] Last Admin: 11/07/18 09:23 Dose: 80 mg Piperacillin Sod/Tazobactam (Sod 3.375 gm/ Dextrose) 50 mls @ 100 mls/hr IVPB Q8H-IV [facility]; Protocol Last Admin: 11/08/18 01:45 Dose: 100 mls/hr Metolazone (Zaroxolyn -) 2.5 mg PO 0930 [facility] Last Admin: 11/07/18 10:26 Dose: 2.5 mg Pantoprazole Sodium (Protonix -) 40 mg PO DAILY [facility] Last Admin: 11/07/18 09:22 Dose: 40 mg Potassium Chloride (K-Dur -) 20 meq PO BID [facility] Last Admin: 11/07/18 21:54 Dose: 20 meq Ramipril (Altace -) 10 mg PO DAILY [facility] Last Admin: 11/07/18 09:22 Dose: 10 mg Sucralfate (Carafate -) 1 gm PO QID [facility] Last Admin: 11/07/18 21:54 Dose: 1 gm - Objective Vital Signs: Vital Signs Temperature 97.7 F 11/08/18 07:25 Pulse Rate 75 11/08/18 07:25 Respiratory Rate 19 11/08/18 07:25 Blood Pressure 111/65 11/08/18 07:25 O2 Sat by Pulse Oximetry (%) 96 11/07/18 22:00 Constitutional: Yes: No Distress, Calm Cardiovascular: Yes: Regular Rate and Rhythm Respiratory: Yes: Regular, CTA Bilaterally Gastrointestinal: Yes: Normal Bowel Sounds, Soft Musculoskeletal: Yes: WNL Extremities: Yes: Other Wound/Incision: Yes: Open to air, Other Neurological: Yes: Alert, Oriented Psychiatric: Yes: Alert, Oriented Labs: CBC, BMP 11/08/18 06:51 11/08/18 06:51 INR, PTT INR 1.26 (0.83-1.09) H 11/06/18 09:41 Assessment/Plan Problem List - Problems (1) Skin ulcer of left great toe Code(s): L97.529 - NON-PRESSURE CHRONIC ULCER OTH PRT LEFT FOOT W UNSP SEVERITY (2) HTN (hypertension) Code(s): I10 - ESSENTIAL (PRIMARY) HYPERTENSION (3) CAD (coronary artery disease) Code(s): I25.10 - ATHSCL HEART DISEASE OF [place] CORONARY ARTERY W/O ANG PCTRS (4) CHF (congestive heart failure) Code(s): I50.9 - HEART FAILURE, UNSPECIFIED (5) GERD (gastroesophageal reflux disease) Code(s): K21.9 - GASTRO-ESOPHAGEAL REFLUX DISEASE WITHOUT ESOPHAGITIS osteo of the left foot plan continue abx will need abx for 6 weeks might need zosyn await for finalization of cx
[2018-11-08] MEDS: APIXABAN 5 MG TABLET PO SCH ×2 (09:10→21:33)
[2018-11-08] MEDS: SUCRALFATE 1 GM TABLET (FP) PO SCH ×4 (09:10→21:33)
[2018-11-08] MEDS: PANTOPRAZOLE 40 MG TABLET (FP) PO SCH (09:10)
[2018-11-08] MEDS: METOLAZONE 2.5 MG TABLET (FP) PO SCH (09:10)
[2018-11-08] MEDS: POTASSIUM CHLORIDE TABS 20 MEQ TABLET.ER (FP) PO SCH ×2 (09:12→21:33)
[2018-11-08] MEDS: FUROSEMIDE 40 MG TABLET (FP) PO SCH (09:12)
[2018-11-08] MEDS: CARVEDILOL 25 MG TABLET (FP) PO SCH ×2 (09:12→21:33)
[2018-11-08] MEDS: DIGOXIN 0.125 MG TABLET (FP) PO SCH (09:12)
[2018-11-08] MEDS: RAMIPRIL 5 MG CAPSULE (FP) PO SCH (09:12)
[2018-11-08] MEDS: COLLAGENASE CLOSTRIDIUM HIST. 30 GRAMS TUBE TP SCH (09:13)
[2018-11-08] MEDS ORDERED: PT OWN MED DRAWER 7, Y5N ONE (21:02)
[2018-11-09] MEDS ORDERED: DEXTROSE 5%-WATER - 50 ML IVPB ONE ×3 (00:34→16:37)
[2018-11-09] MEDS ORDERED: PIPERACILLIN/TAZOBACTAM 3.375 GM VIAL IVPB ONE ×3 (00:34→16:36)
[2018-11-09] MEDS: PIPERACILLIN/TAZOB 3.375 GM 3.375 GM in DEXTROSE 5%-WATER - 50 ML IVPB SCH ×3 (01:07→17:26)
[2018-11-09 08:22] LABS: HEMATOCRIT 33.6 % (35.4-49); HEMOGLOBIN 10.9 GM/dL (11.7-16.9); MCH 24.9 pg (25.7-33.7); MCHC 32.4 g/dl (32.0-35.9); MEAN CELL VOLUME 76.9 fl (80-96); MEAN PLT VOLUME 8.6 fl (7.5-11.1); RBC 4.37 M/mm3 (4.00-5.60); RDW 15.4 % (11.9-15.9); WHITE BLOOD COUNT 7.9 K/mm3 (4.0-10.0)
[2018-11-09 08:57] LABS: ALBUMIN 3.5 g/dl (3.4-5.0); BILIRUBIN,TOTAL 0.6 mg/dL (0.2-1); BLOOD UREA NITROGEN 15.9 mg/dL (7-18); CALCIUM 8.3 mg/dL (8.5-10.1); CREATININE 0.9 mg/dL (0.55-1.3); POTASSIUM 3.6 mmol/L (3.5-5.1); TOT PROT 6.4 g/dl (6.4-8.2)
[2018-11-09 09:03] LABS: PLATELET COUNT 180 K/MM3 (134-434)
[2018-11-09] MEDS: METOLAZONE 2.5 MG TABLET (FP) PO SCH (10:06)
[2018-11-09] MEDS: SUCRALFATE 1 GM TABLET (FP) PO SCH ×4 (10:06→21:32)
[2018-11-09] MEDS: RAMIPRIL 5 MG CAPSULE (FP) PO SCH (10:06)
[2018-11-09] MEDS: APIXABAN 5 MG TABLET PO SCH ×2 (10:07→21:32)
[2018-11-09] MEDS: POTASSIUM CHLORIDE TABS 20 MEQ TABLET.ER (FP) PO SCH ×2 (10:07→21:32)
[2018-11-09] MEDS: DIGOXIN 0.125 MG TABLET (FP) PO SCH (10:07)
[2018-11-09] MEDS: CARVEDILOL 25 MG TABLET (FP) PO SCH ×2 (10:07→21:32)
[2018-11-09] MEDS: PANTOPRAZOLE 40 MG TABLET (FP) PO SCH (10:08)
[2018-11-09] MEDS: COLLAGENASE CLOSTRIDIUM HIST. 30 GRAMS TUBE TP SCH (10:08)
[2018-11-09] MEDS: FUROSEMIDE 40 MG TABLET (FP) PO SCH (10:08)
--- NOTE | 2018-11-09 12:24 | PN ---
Progress Note, Physician History of Present Illness: stable no new issues - Current Medication List Current Medications: Active Medications Apixaban (Eliquis -) 5 mg PO BID [facility] Last Admin: 11/09/18 10:07 Dose: 5 mg Carvedilol (Coreg -) 25 mg PO BID [facility] Last Admin: 11/09/18 10:07 Dose: 25 mg Collagenase (Santyl -) 1 applic TP DAILY [facility]; Protocol Last Admin: 11/09/18 10:08 Dose: 1 applic Digoxin (Lanoxin -) 0.125 mg PO DAILY [facility] Last Admin: 11/09/18 10:07 Dose: 0.125 mg Furosemide (Lasix -) 80 mg PO DAILY [facility] Last Admin: 11/09/18 10:08 Dose: 80 mg Piperacillin Sod/Tazobactam (Sod 3.375 gm/ Dextrose) 50 mls @ 100 mls/hr IVPB Q8H-IV [facility]; Protocol Last Admin: 11/09/18 10:06 Dose: 100 mls/hr Metolazone (Zaroxolyn -) 2.5 mg PO 0930 [facility] Last Admin: 11/09/18 10:06 Dose: 2.5 mg Pantoprazole Sodium (Protonix -) 40 mg PO DAILY [facility] Last Admin: 11/09/18 10:08 Dose: 40 mg Potassium Chloride (K-Dur -) 20 meq PO BID [facility] Last Admin: 11/09/18 10:07 Dose: 20 meq Ramipril (Altace -) 10 mg PO DAILY [facility] Last Admin: 11/09/18 10:06 Dose: 10 mg Sucralfate (Carafate -) 1 gm PO QID [facility] Last Admin: 11/09/18 10:06 Dose: 1 gm - Objective Vital Signs: Vital Signs Temperature 97.7 F 11/09/18 07:56 Pulse Rate 103 H 11/09/18 10:07 Respiratory Rate 20 11/09/18 10:00 Blood Pressure 121/73 11/09/18 10:00 O2 Sat by Pulse Oximetry (%) 98 11/09/18 09:00 Constitutional: Yes: No Distress, Calm Cardiovascular: Yes: Regular Rate and Rhythm Respiratory: Yes: Regular, CTA Bilaterally Gastrointestinal: Yes: Normal Bowel Sounds, Soft Musculoskeletal: Yes: WNL Extremities: Yes: Other Neurological: Yes: Alert, Oriented Psychiatric: Yes: Alert, Oriented Labs: CBC, BMP 11/09/18 07:39 11/09/18 07:39 INR, PTT INR 1.26 (0.83-1.09) H 11/06/18 09:41 Assessment/Plan Problem List - Problems (1) Skin ulcer of left great toe Code(s): L97.529 - NON-PRESSURE CHRONIC ULCER OTH PRT LEFT FOOT W UNSP SEVERITY (2) HTN (hypertension) Code(s): I10 - ESSENTIAL (PRIMARY) HYPERTENSION (3) CAD (coronary artery disease) Code(s): I25.10 - ATHSCL HEART DISEASE OF [place] CORONARY ARTERY W/O ANG PCTRS (4) CHF (congestive heart failure) Code(s): I50.9 - HEART FAILURE, UNSPECIFIED (5) GERD (gastroesophageal reflux disease) Code(s): K21.9 - GASTRO-ESOPHAGEAL REFLUX DISEASE WITHOUT ESOPHAGITIS osteo of the left foot plan continue abx will need abx for 6 weeks will need zosyn for that duration wound care
--- NOTE | 2018-11-09 13:45 | PN ---
Progress Note, Physician Chief Complaint: Left great toe osteomyelitis History of Present Illness: NAD self ambulatory wants to go home awaiting insurance approval - Current Medication List Current Medications: Active Medications Apixaban (Eliquis -) 5 mg PO BID [facility] Last Admin: 11/09/18 10:07 Dose: 5 mg Carvedilol (Coreg -) 25 mg PO BID [facility] Last Admin: 11/09/18 10:07 Dose: 25 mg Collagenase (Santyl -) 1 applic TP DAILY [facility]; Protocol Last Admin: 11/09/18 10:08 Dose: 1 applic Digoxin (Lanoxin -) 0.125 mg PO DAILY [facility] Last Admin: 11/09/18 10:07 Dose: 0.125 mg Furosemide (Lasix -) 80 mg PO DAILY [facility] Last Admin: 11/09/18 10:08 Dose: 80 mg Piperacillin Sod/Tazobactam (Sod 3.375 gm/ Dextrose) 50 mls @ 100 mls/hr IVPB Q8H-IV [facility]; Protocol Last Admin: 11/09/18 10:06 Dose: 100 mls/hr Metolazone (Zaroxolyn -) 2.5 mg PO 0930 [facility] Last Admin: 11/09/18 10:06 Dose: 2.5 mg Pantoprazole Sodium (Protonix -) 40 mg PO DAILY [facility] Last Admin: 11/09/18 10:08 Dose: 40 mg Potassium Chloride (K-Dur -) 20 meq PO BID [facility] Last Admin: 11/09/18 10:07 Dose: 20 meq Ramipril (Altace -) 10 mg PO DAILY [facility] Last Admin: 11/09/18 10:06 Dose: 10 mg Sucralfate (Carafate -) 1 gm PO QID [facility] Last Admin: 11/09/18 13:37 Dose: 1 gm - Objective Vital Signs: Vital Signs Temperature 97.7 F 11/09/18 07:56 Pulse Rate 103 H 11/09/18 10:07 Respiratory Rate 20 11/09/18 10:00 Blood Pressure 121/73 11/09/18 10:00 O2 Sat by Pulse Oximetry (%) 98 11/09/18 09:00 Constitutional: Yes: Well Nourished, No Distress, Calm Cardiovascular: Yes: Regular Rate and Rhythm Respiratory: Yes: Regular Gastrointestinal: Yes: WNL Genitourinary: Yes: WNL Musculoskeletal: Yes: WNL Extremities: Yes: WNL Edema: No Peripheral Pulses WNL: Yes Neurological: Yes: Alert, Oriented Psychiatric: Yes: Alert, Oriented Labs: CBC, BMP 11/09/18 07:39 11/09/18 07:39 INR, PTT INR 1.26 (0.83-1.09) H 11/06/18 09:41 Assessment/Plan (1) Skin ulcer of left great toe Assessment/Plan: -ID, Podiatry, Vascular on board -daily dressing changes -Collegenase -Zosyn for 6 weeks -no leukocytosis -afebrile -wound culture positive -MRI shows question of hazy bone marrow edema of the distal phalanx of first toe however nonspecific and could be due to motion artifact or represent reactive osteitis however early osteomyelitis cant be ruled out -will need PICC line insertion for training and development specialist ABT Code(s): L97.529 - NON-PRESSURE CHRONIC ULCER OTH PRT LEFT FOOT W UNSP SEVERITY (2) HTN (hypertension) Assessment/Plan: -Carvedilol, Ramipril -low Na diet Code(s): I10 - ESSENTIAL (PRIMARY) HYPERTENSION (3) CAD (coronary artery disease) Assessment/Plan: -Eliquis Code(s): I25.10 - ATHSCL HEART DISEASE OF [place] CORONARY ARTERY W/O ANG PCTRS (4) CHF (congestive heart failure) Assessment/Plan: -Furosemide, Zaroxolyn, Digoxin -1L fluid restriction -daily weights -monitor electrolyte due to diuretic use Code(s): I50.9 - HEART FAILURE, UNSPECIFIED (5) GERD (gastroesophageal reflux disease) Assessment/Plan: -Pantoprazole, Carafate Code(s): K21.9 - GASTRO-ESOPHAGEAL REFLUX DISEASE WITHOUT ESOPHAGITIS
[2018-11-09] MEDS ORDERED: PT OWN MED DRAWER 7, Y5N ONE (21:03)
[2018-11-10] MEDS ORDERED: DEXTROSE 5%-WATER - 50 ML IVPB ONE ×3 (02:29→17:14)
[2018-11-10] MEDS ORDERED: PIPERACILLIN/TAZOBACTAM 3.375 GM VIAL IVPB ONE ×3 (02:29→17:14)
[2018-11-10] MEDS: PIPERACILLIN/TAZOB 3.375 GM 3.375 GM in DEXTROSE 5%-WATER - 50 ML IVPB SCH ×3 (02:33→17:48)
--- NOTE | 2018-11-10 10:27 | PN ---
Progress Note (short form) - Note Progress Note: FUV left foot. vss +dry granulating wound, -cellulitis, -drainage, grade 1-2 wound om Daily Santyl dressing changes. Abx as per ID. Will follow in office upon dc. Post op shoe left foot now.
[2018-11-10] MEDS: METOLAZONE 2.5 MG TABLET (FP) PO SCH (11:00)
[2018-11-10] MEDS: SUCRALFATE 1 GM TABLET (FP) PO SCH ×4 (11:00→21:28)
[2018-11-10] MEDS: APIXABAN 5 MG TABLET PO SCH ×2 (11:00→21:28)
[2018-11-10] MEDS: FUROSEMIDE 40 MG TABLET (FP) PO SCH (11:00)
[2018-11-10] MEDS: POTASSIUM CHLORIDE TABS 20 MEQ TABLET.ER (FP) PO SCH ×2 (11:00→21:28)
[2018-11-10] MEDS: COLLAGENASE CLOSTRIDIUM HIST. 30 GRAMS TUBE TP SCH (11:00)
[2018-11-10] MEDS: DIGOXIN 0.125 MG TABLET (FP) PO SCH (11:00)
[2018-11-10] MEDS: RAMIPRIL 5 MG CAPSULE (FP) PO SCH (11:00)
[2018-11-10] MEDS: CARVEDILOL 25 MG TABLET (FP) PO SCH ×2 (11:00→21:28)
[2018-11-10] MEDS: PANTOPRAZOLE 40 MG TABLET (FP) PO SCH (11:00)
[2018-11-10] MEDS ORDERED: PT OWN MED DRAWER 7, Y5N ONE ×4 (11:08→21:15)
--- NOTE | 2018-11-10 11:55 | DS ---
Physical Examination Vital Signs: Vital Signs Temperature 98.0 F 11/10/18 10:00 Pulse Rate 92 H 11/10/18 11:00 Respiratory Rate 18 11/10/18 10:00 Blood Pressure 108/62 11/10/18 10:00 O2 Sat by Pulse Oximetry (%) 98 11/09/18 21:00 Findings/Remarks: Patient is a 67 y/o male with past medical history of Afib, HTN, CHF. Patient presents to ER with L foot great toe wound. Patient was following up with produce assistant 2 days ago and was instructed to come to ER for possible surgery. Pain is exacerbated with walking and prolonged standing. Patient says he was treated with antibiotics in past for wound but still was not healing properly. Constitutional: Yes: Well Nourished, No Distress, Calm Cardiovascular: Yes: Regular Rate and Rhythm Respiratory: Yes: Regular Gastrointestinal: Yes: Normal Bowel Sounds, Soft Musculoskeletal: Yes: WNL Extremities: Yes: WNL Edema: No Peripheral Pulses WNL: Yes Neurological: Yes: Alert, Oriented Psychiatric: Yes: Alert, Oriented Labs: CBC, BMP 11/09/18 07:39 11/09/18 07:39 Discharge Summary Reason For Visit: HX INFECTION NOT RESPONSIVE TO ANTIBIOTIC THERAPY Current Active Problems CAD (coronary artery disease) (Acute) CHF (congestive heart failure) (Acute) GERD (gastroesophageal reflux disease) (Acute) HTN (hypertension) (Acute) Skin ulcer of left great toe (Acute) Hospital Course: Laboratory Last Values WBC 7.9 K/mm3 (4.0-10.0) 11/09/18 07:39 RBC 4.37 M/mm3 (4.00-5.60) 11/09/18 07:39 Hgb 10.9 GM/dL (11.7-16.9) L 11/09/18 07:39 Hct 33.6 % (35.4-49) L 11/09/18 07:39 MCV 76.9 fl (80-96) L 11/09/18 07:39 MCH 24.9 pg (25.7-33.7) L 11/09/18 07:39 MCHC 32.4 g/dl (32.0-35.9) 11/09/18 07:39 RDW 15.4 % (11.9-15.9) 11/09/18 07:39 Plt Count 180 K/MM3 (134-434) 11/09/18 07:39 MPV 8.6 fl (7.5-11.1) 11/09/18 07:39 Absolute Neuts (auto) 5.2 K/mm3 (1.5-8.0) 11/07/18 06:54 Neutrophils % 68.6 % (42.8-82.8) 11/07/18 06:54 Lymphocytes % 19.2 % (8-40) D 11/07/18 06:54 Monocytes % 8.1 % (3.8-10.2) 11/07/18 06:54 Eosinophils % 3.5 % (0-4.5) 11/07/18 06:54 Basophils % 0.6 % (0-2.0) 11/07/18 06:54 Nucleated RBC % 0 % (0-0) 11/07/18 06:54 ESR 8 mm/hr (0-20) 11/07/18 06:54 PT with INR 14.90 SEC (9.7-13.0) H 11/06/18 09:41 INR 1.26 (0.83-1.09) H 11/06/18 09:41 PTT (Actin FS) 34.0 SECONDS (25.2-36.5) 11/06/18 09:41 Sodium 137 mmol/L (136-145) 11/09/18 07:39 Potassium 3.6 mmol/L (3.5-5.1) 11/09/18 07:39 Chloride 99 mmol/L (98-107) 11/09/18 07:39 Carbon Dioxide 32 mmol/L (21-32) 11/09/18 07:39 Anion Gap 6 MMOL/L (8-16) L 11/09/18 07:39 BUN 15.9 mg/dL (7-18) 11/09/18 07:39 Creatinine 0.9 mg/dL (0.55-1.3) 11/09/18 07:39 Est GFR (CKD-EPI)AfAm 103.51 11/09/18 07:39 Est GFR (CKD-EPI)NonAf 89.31 11/09/18 07:39 POC Glucometer 102 UNITS (80-120) 11/09/18 05:50 Random Glucose 90 mg/dL (74-106) 11/09/18 07:39 Calcium 8.3 mg/dL (8.5-10.1) L 11/09/18 07:39 Phosphorus 3.5 mg/dL (2.5-4.9) 11/07/18 06:54 Magnesium 2.1 mg/dL (1.8-2.4) 11/07/18 06:54 Total Bilirubin 0.6 mg/dL (0.2-1) 11/09/18 07:39 AST 18 U/L (15-37) 11/09/18 07:39 ALT 17 U/L (13-61) 11/09/18 07:39 Alkaline Phosphatase 80 U/L (45-117) 11/09/18 07:39 C-Reactive Protein < 0.3 MG/DL (0.00-0.3) 11/06/18 09:41 Total Protein 6.4 g/dl (6.4-8.2) 11/09/18 07:39 Albumin 3.5 g/dl (3.4-5.0) 11/09/18 07:39 TSH 1.49 uIU/ml (0.358-3.74) 11/07/18 06:54 Digoxin 0.60 ng/ml (0.8-2.0) L 11/07/18 06:54 Blood Type A POSITIVE 11/06/18 12:23 Antibody Screen Negative 11/06/18 09:41 Microbiology 11/06/18 09:15 Toe - Left Hallux Gram Stain - Final 11/06/18 09:15 Toe - Left Hallux Wound Culture - Final Pseudomonas Aeruginosa Enterococcus Faecalis Vital Signs Temp 98.0 F 11/10/18 10:00 Pulse 92 H 11/10/18 11:00 Resp 18 11/10/18 10:00 BP 108/62 11/10/18 10:00 Pulse Ox 98 11/09/18 21:00 Intake & Output 11/09/18 11/09/18 11/10/18 11:59 23:59 11:59 Intake Total 290 320 50 Balance 290 320 50 Weight 107.53 kg 108.499 kg Intake: IVPB 50 50 Oral 240 320 Other: Voiding Method Toilet Toilet Bowel Movement No # Bowel Movements 1 Weight Measurement Method Chair Scale [facility] Condition: Stable - Instructions Disposition: HOME - Home Medications Comprehensive Discharge Medication List: Ambulatory Orders Apixaban [Eliquis] 5 mg PO BID 11/06/18 Carvedilol 25 mg PO BID 11/06/18 Digoxin [Lanoxin -] 0.125 mg PO DAILY 11/06/18 Furosemide [Lasix] 80 mg PO DAILY 11/06/18 Metolazone 2.5 mg PO DAILY 11/06/18 Pantoprazole Sodium [Protonix] 40 mg PO DAILY 11/06/18 Potassium Chloride [K-Dur -] 20 meq PO BID 11/06/18 Ramipril 10 mg PO DAILY 11/06/18 Sucralfate [Carafate -] 1 gm PO QID 11/06/18
[2018-11-11] MEDS ORDERED: PIPERACILLIN/TAZOBACTAM 3.375 GM VIAL IVPB ONE ×2 (02:03→08:50)
[2018-11-11] MEDS ORDERED: DEXTROSE 5%-WATER - 50 ML IVPB ONE ×2 (02:03→08:50)
[2018-11-11] MEDS: PIPERACILLIN/TAZOB 3.375 GM 3.375 GM in DEXTROSE 5%-WATER - 50 ML IVPB SCH ×2 (02:12→09:08)
[2018-11-11 06:24] VITALS: BP 100/60; TEMP 71
[2018-11-11] MEDS ORDERED: PT OWN MED DRAWER 7, Y5N ONE (09:04)
[2018-11-11] MEDS: FUROSEMIDE 40 MG TABLET (FP) PO SCH (09:08)
[2018-11-11] MEDS: APIXABAN 5 MG TABLET PO SCH (09:09)
[2018-11-11] MEDS: DIGOXIN 0.125 MG TABLET (FP) PO SCH (09:09)
[2018-11-11] MEDS: CARVEDILOL 25 MG TABLET (FP) PO SCH (09:09)
[2018-11-11] MEDS: RAMIPRIL 5 MG CAPSULE (FP) PO SCH (09:09)
[2018-11-11] MEDS: POTASSIUM CHLORIDE TABS 20 MEQ TABLET.ER (FP) PO SCH (09:09)
[2018-11-11] MEDS: PANTOPRAZOLE 40 MG TABLET (FP) PO SCH (09:09)
[2018-11-11 09:17] VITALS: PULSE 91
== END 2018-11-11 10:29 | disposition home or self-care (01) | DRG 593 ==
LOC: JER 08:20 → JERBED 09:39 → J6S 10:47
PROVIDERS: ADMIT Family Medicine; ATTEND Family Medicine
PROC: 02HV33Z Insertion of Infusion Device into Superior Vena Cava, Percutaneous Approach (ICD-10-PCS; principal; 2018-11-08)
PROC: B548ZZA Ultrasonography of Superior Vena Cava, Guidance (ICD-10-PCS; 2018-11-08)
DX: L97.529 Non-pressure chronic ulcer of other part of left foot with unspecified severity (principal); M86.8X7 Other osteomyelitis, ankle and foot; I48.91 Unspecified atrial fibrillation; Z79.01 Long term (current) use of anticoagulants; I11.0 Hypertensive heart disease with heart failure; I50.9 Heart failure, unspecified; I45.10 Unspecified right bundle-branch block; I25.10 Atherosclerotic heart disease of native coronary artery without angina pectoris; K21.9 Gastro-esophageal reflux disease without esophagitis; Z98.84 Bariatric surgery status; E66.01 Morbid (severe) obesity due to excess calories; Z68.32 Body mass index [BMI] 32.0-32.9, adult
CPT/HCPCS: 36415; 36569; 71046-TC-FY; 73718-TC-LT; 77001-TC-FY; 80053; 80162; 82962; 83735; 84100; 84436; 84443; 85025; 85027; 85610; 85651; 85730; 86140; 86850; 86900; 86901; 87070; 87186; 87205; 93005; 93010; 93971-TC; 97116-GP; 97161-GP; 99282-25; C1751

== ENCOUNTER 2018-11-18 18:27 | Emergency (ER) | payer BC ==
[2018-11-18 18:55] VITALS: TEMP 98.5; BMI 33.9
--- NOTE | 2018-11-18 19:07 | PDOC ---
History of Present Illness - General Chief Complaint: Pain Stated Complaint: ABD PAIN Time Seen by Provider: 11/18/18 19:07 - History of Present Illness Initial Comments: 67yo M with PMH of Afib on Eliquis, CHF, GI bleed, nephrolithiasis, cholecystectomy, hernia repair, gastric bypass, CAD s/p stent, foot ulcer currently on IV antibiotics via PICC line and hyperbaric oxygen therapy presenting with periumbilical pain radiating to his right flank. Patient states this pain started this morning and gradually got worse, rated 10/10 at its highest. The pain was so bad he felt like he was going to pass out, but denies any syncopal episode. He describes the pain as "turning" or "jabbing." Pain has lessened and is currently rated 3/10. Standing up would make his pain worse and nothing made it better. Denies urinary symptoms. Never had pain like this before. Last colonoscopy/endoscopy were six months ago and they were "good." Patient's last bowel movement was five hours ago and was a normal formed brown stool without blood. Has passed flatulence since that time. Endorsing some nausea, but no vomiting. Has had lessened po intake today as he was afraid eating would make his pain worse. Has not taken anything for his pain as he does not like to take medicine. Patient administers IV Zosyn three times a day. He took his 8am dose, but is concerned that he missed his 5pm dose. Patient remarks that his blood pressure is usually on the lower side due to his afib. No fevers, chills, chest pain, or shortness of breath. PCP: Dr. Urias Podiatry: Dr. Merida Past History - Past Medical History Allergies/Adverse Reactions: Allergies Allergy/AdvReac Type Severity Reaction Status Date / Time No Known Allergies Allergy Verified 11/18/18 18:51 Home Medications: Ambulatory Orders Apixaban [Eliquis] 5 mg PO BID 11/06/18 Carvedilol 25 mg PO BID 11/06/18 Digoxin [Lanoxin -] 0.125 mg PO DAILY 11/06/18 Furosemide [Lasix] 80 mg PO DAILY 11/06/18 Metolazone 2.5 mg PO DAILY 11/06/18 Pantoprazole Sodium [Protonix] 40 mg PO DAILY 11/06/18 Potassium Chloride [K-Dur -] 20 meq PO BID 11/06/18 Ramipril 10 mg PO DAILY 11/06/18 Sucralfate [Carafate -] 1 gm PO QID 11/06/18 Collagenase Clostridium Hist. [Santyl -] 1 applic TP DAILY #1 tube 11/10/18 Piperacillin/Tazob 3.375 gm [Zosyn -] 3.375 gm IVPB Q8H-IV vial 11/10/18 Cardiac Disorders: Yes (CARDIAC STENT) COPD: No Kidney Stones: Yes - Surgical History Abdominal Surgery: (GASTRIC BYPASS) Cardiac Surgery: (STENT) Cholecystectomy: Yes - Suicide/Smoking/Psychosocial Hx Smoking History: Former smoker Have you smoked in the past 12 months: No Number of Cigarettes Smoked Daily: 40 If you are a former smoker, when did you quit?: 15 YRS Information on smoking cessation initiated: No 'Breaking Loose' booklet given: 11/06/18 Hx Alcohol Use: No Drug/Substance Use Hx: No Review of Systems - Review of Systems Comments:: Constitutional: no fever, no chills HEENT: no throat pain, no dysphagia Cardiovascular: no chest pain, no palpitations Respiratory: no cough, no shortness of breath Gastrointestinal: +abdominal pain, +nausea Genitourinary: no dysuria, no frequency Musculoskeletal: no myalgia, no arthralgia Skin: +foot wound, no itching Neurologic: no headache, no weakness *Physical Exam - Vital Signs Last Vital Signs Temp Pulse Resp BP Pulse Ox 98.5 F 69 18 90/50 L 95 11/18/18 18:52 11/18/18 18:52 11/18/18 18:52 11/18/18 18:52 11/18/18 18:52 - Physical Exam Comments: General: Awake, alert, and fully oriented, in no acute distress Head: No signs of trauma Eyes: EOMI, sclera anicteric ENT: Moist mucus membranes Neck: Normal ROM, supple Lungs: Lungs clear, Normal breath sounds Cardio: Irregular rhythm, S1 and S2 present Abdomen: Soft, nontender, nondistended. No guarding, no rebound, no masses. No CVA tenderness bilaterally. Extremities: Normal range of motion, Distal pulses present, LUE with PICC line in place that is clean, dry, and intact without any signs of infection SKIN: 0.75x.5cm L. Foot 1st digit with well-healing wound on plantar aspect with no discharge or bleeding, no surrounding erythema; skin otherwise warm, dry , normal turgor Neurologic: Cranial nerves II through XII grossly intact. Normal speech ED Treatment Course - LABORATORY CBC & Chemistry Diagram: 11/18/18 20:18 11/18/18 20:18 Medical Decision Making - Medical Decision Making 67yo M with PMH of Afib on Eliquis, CHF, GI bleed, nephrolithiasis, cholecystectomy, hernia repair, gastric bypass, CAD s/p stent, foot ulcer currently on IV antibiotics via PICC line and hyperbaric oxygen therapy presenting with periumbilical pain radiating to his right flank. DDX including but not limited to nephrolithiasis, UTI, pyelonephritis, pancreatitis, gastritis, gastroenteritis, appendicitis, ACS Labs, EKG Home Zosyn 4mg Zofran Patient declined pain medicine CT renal study to r/o stone Low suspicion for other acute abdominal pathology. It is possible that patient may have passed stone already. 11/18/18 19:10 EKG, rate 71, Qtc 449, Afib with wide QRS, RBBB also present on previous EKG 11/0611/18/18 20:12 CBC WBC 7.4 K/mm3 (4.0-10.0) 11/18/18 20:18 RBC 4.51 M/mm3 (4.00-5.60) 11/18/18 20:18 Hgb 11.2 GM/dL (11.7-16.9) L 11/18/18 20:18 Hct 34.7 % (35.4-49) L 11/18/18 20:18 MCV 77.0 fl (80-96) L 11/18/18 20:18 MCH 24.8 pg (25.7-33.7) L 11/18/18 20:18 MCHC 32.2 g/dl (32.0-35.9) 11/18/18 20:18 RDW 15.8 % (11.9-15.9) 11/18/18 20:18 Plt Count 170 K/MM3 (134-434) 11/18/18 20:18 MPV 9.0 fl (7.5-11.1) 11/18/18 20:18 Absolute Neuts (auto) 5.8 K/mm3 (1.5-8.0) 11/18/18 20:18 Neutrophils % 78.7 % (42.8-82.8) 11/18/18 20:18 Lymphocytes % 11.5 % (8-40) D 11/18/18 20:18 Monocytes % 6.8 % (3.8-10.2) 11/18/18 20:18 Eosinophils % 2.0 % (0-4.5) 11/18/18 20:18 Basophils % 1.0 % (0-2.0) 11/18/18 20:18 Nucleated RBC % 0 % (0-0) 11/18/18 20:18 No anemia Hgb at patient's baseline CMP Sodium 135 mmol/L (136-145) L 11/18/18 20:18 Potassium 4.1 mmol/L (3.5-5.1) 11/18/18 20:18 Chloride 100 mmol/L (98-107) 11/18/18 20:18 Carbon Dioxide 31 mmol/L (21-32) 11/18/18 20:18 Anion Gap 5 MMOL/L (8-16) L 11/18/18 20:18 BUN 24.7 mg/dL (7-18) H 11/18/18 20:18 Creatinine 1.0 mg/dL (0.55-1.3) 11/18/18 20:18 Est GFR (CKD-EPI)AfAm 91.13 11/18/18 20:18 Est GFR (CKD-EPI)NonAf 78.63 11/18/18 20:18 Random Glucose 98 mg/dL (74-106) 11/18/18 20:18 Calcium 8.8 mg/dL (8.5-10.1) 11/18/18 20:18 Total Bilirubin 0.4 mg/dL (0.2-1) 11/18/18 20:18 AST 21 U/L (15-37) 11/18/18 20:18 ALT 25 U/L (13-61) 11/18/18 20:18 Alkaline Phosphatase 74 U/L (45-117) 11/18/18 20:18 Total Protein 6.6 g/dl (6.4-8.2) 11/18/18 20:18 Albumin 3.6 g/dl (3.4-5.0) 11/18/18 20:18 Lipase 255 U/L (73-393) 11/18/18 20:18 Electrolytes unremarkable BUN elevated, likely due to poor po intake today Cr normal No transaminitis Lipase normal UA negative for infection, no blood Patient feeling better, now with 2/[address] report 11/18/18 21:59 CT via Imaging cloth seconds sorter: "Findings: There is elevation of the right hemidiaphragm with some right basilar atelectatic changes. The remainder the visualized portions of the lower thorax are within normal limits. There is no free intra-abdominal gas or fluid. There is been a prior cholecystectomy. The liver, adrenals, and pancreas are unremarkable, given limitations of a nonenhanced CT. The spleen is mildly enlarged measuring 14.6 x 6.3 cm in axial dimension and extends 13 cm in craniocaudal dimension. There is no hydronephrosis or renal calculi bilaterally. The bilateral kidneys are unremarkable, given limitations of a nonenhanced CT. There are no enlarged abdominal or pelvic lymph node, by size greater area. The urinary bladder is unremarkable. There are small bilateral inguinal hernias. There is evidence of prior gastric bypass surgery the appendix is normal. There is some colonic diverticulosis, without evidence of diverticulitis. There is some crisscrossing of loops of bowel, likely related to prior surgery, but there is no evidence of bowel obstruction. The remainder of the bowel is unremarkable. There is multilevel lumbar degenerative disc and facet disease. There is some mild bilateral hip osteoarthritis. The remainder the visualized bony structures are unremarkable Impression: 1. Extensive colonic diverticulosis, without evidence of diverticulitis. 2. Evidence of prior gastric bypass surgery. 3. Splenomegaly. 4. Elevation of the left hemidiaphragm. 5. Multilevel lumbar degenerative disc and facet disease. 6. Mild bilateral hip osteoarthritis. One or more of the following dose reduction techniques were used: automated exposure control, adjustment of the mA and/or kV according to patient size, use of iterative reconstructive technique." 11/18/18 22:22 Patient discharged *DC/Admit/Observation/Transfer Diagnosis at time of Disposition: Abdominal pain - Discharge Dispostion Disposition: HOME - Referrals Referrals: Miko Christiansen MD [Primary Care Provider] - - Patient Instructions Printed Discharge Instructions: DI for Abdominal Pain-Adult Additional Instructions: You came into the ED for abdominal pain. Labs and CT imaging did not indicate acute pathology. The CT did show an enlarged spleen for which you should follow up with your primary care physician. Follow-up with a primary care provider this week to discuss this ED visit and to further evaluate your symptoms. Call and make an appointment tomorrow morning. Your workup is not complete until you do so. Immediate medical attention is required if you develop: worsening pain, high fevers, persistent nausea, vomiting, or any new or concerning symptoms. If you think you are having an emergency, call for emergency medical services or present to the emergency department right away. - Post Discharge Activity
[2018-11-18] MEDS ORDERED: ONDANSETRON 4 MG/2 ML VIAL IVPUSH ONE (19:39)
[2018-11-18] MEDS ORDERED: ONDANSETRON 4 MG/2 ML VIAL ONE (19:45)
[2018-11-18] MEDS ORDERED: PIPERACILLIN/TAZOB 3.375 GM 3.375 GM in DEXTROSE 5%-WATER - 50 ML IVPB ONE (19:48)
[2018-11-18 19:50] LABS: URINE APPEARANCE CLEAR; URINE BILIRUBIN NEGATIVE (NEGATIVE); URINE COLOR YELLOW; URINE GLUCOSE (UA) NEGATIVE (NEGATIVE); URINE KETONE NEGATIVE (NEGATIVE); URINE LEUK ESTERASE NEGATIVE (NEGATIVE); URINE NITRITE NEGATIVE (NEGATIVE); URINE PROTEIN NEGATIVE (NEGATIVE)
[2018-11-18 20:28] LABS: HEMATOCRIT 34.7 % (35.4-49); HEMOGLOBIN 11.2 GM/dL (11.7-16.9); LYMPH % 11.5 % (8-40); MCH 24.8 pg (25.7-33.7); MCHC 32.2 g/dl (32.0-35.9); MONO % 6.8 % (3.8-10.2); NEUT % 78.7 % (42.8-82.8); PLATELET COUNT 170 K/MM3 (134-434); RBC 4.51 M/mm3 (4.00-5.60); RDW 15.8 % (11.9-15.9); WHITE BLOOD COUNT 7.4 K/mm3 (4.0-10.0)
--- NOTE | 2018-11-18 20:35 | PDOC ---
Documentation entered by So Rizo SCRIBE, acting as scribe for Rosalba Gomez MD. Rosalba Gomez MD: This documentation has been prepared by the john, So Rizo SCRIBE, under my direction and personally reviewed by me in its entirety. I confirm that the documentation accurately reflects all work, treatment, procedures, and medical decision making performed by me. Attending Attestation - Resident Resident Name: Karen Castañeda - ED Attending Attestation I have performed the following: I have examined & evaluated the patient, The case was reviewed & discussed with the resident, I agree w/resident's findings & plan, Exceptions are as noted - HPI HPI: 11/18/18 20:34 The patient is a 67-year-old male with a past medical history significant for Afib (on Eliquis), CHF, HTN, s/p gastric bypass, L. foot wound (f/u with Dr. Strickland) presents to the emergency department with a gradual onset of abdominal pain thats been worsening since the presentation. The patient reports the pain presented gradually, initially it was 10/10 in severity, currently, the pain has decreased to 3/10. The patient reports pain relief while lying down, however, the pain kept increasing in severity. The patient reports he skipped his 5:00 pm abx, secondary to thinking the abx is the source of the pain. The patient reports having a bowel movement today, and reports passing gas. Denies fever, chills, urinary symptoms, or changes in bowel habits. - Physicial Exam PE: 11/18/18 20:17 GENERAL: Awake, alert and oriented. The patient is in no acute distress. ENT: Ears normal, nares patent, oropharynx clear without exudates. Moist mucous membranes. NECK: Normal range of motion, supple, no nuchal rigidity LUNGS: Breath sounds equal, clear to auscultation bilaterally. No wheezes, and no crackles. HEART: Regular rate and rhythm, normal S1 and S2 without murmurs, rubs or gallops. ABDOMEN: +right side soreness. Soft, nontender. No guarding, no rebound. No masses palpable. EXTREMITIES: Normal range of motion, no edema. NEUROLOGICAL: Answering all questions. Cranial nerves II through XII grossly intact. Normal speech. No focal neurological deficits. SKIN: Warm, Dry, normal turgor, no rashes or lesions noted. - Medical Decision Making 11/18/18 20:23 67 yo M presenting with a complaint of severe abdominal pain Pt is currently being treated for a great toe infection through PICC line (With Zosyn) Pt reports a gradual worsening abdominal pain which began this morning Pain was 10/10 at its worse No fevers or chills Normal BM and (+) flatus since pain happened Pain described as sharp, located on the right side of the abdomen with radiation to the right flank No exacerbating factors Pt was afraid to stay home and give himself antibiotics in case this meds were causing his pain Currently, pain has largely resolved - 3/10 described as an ache DD: Renal colic, colitis, gastroenteritis, PUD, Will do: Labs EKG CT Re Assess EKG - Afib rate of 71 bpm, Right axis deviation, RBBB, no st elevation or depression, t waves upright 11/18/18 21:32 Laboratory Tests 11/18/18 11/18/18 11/18/18 19:35 20:18 20:18 WBC 7.4 Hgb 11.2 L Hct 34.7 L Plt Count 170 BUN 24.7 H Creatinine 1.0 Lipase Urine Blood Negative Urine Nitrite Negative Ur Leukocyte Esterase Negative 11/18/18 20:18 WBC Hgb Hct Plt Count BUN Creatinine Lipase 255 Urine Blood Urine Nitrite Ur Leukocyte Esterase 11/18/18 22:29 CT: THIS IS A 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 Clinical indication: Abdominal pain. There are no prior studies available for comparison. Technique: Axial CT images of the abdomen and pelvis were obtained followed by coronal and sagittal reformats. Findings: There is elevation of the right hemidiaphragm with some right basilar atelectatic changes. The remainder the visualized portions of the lower thorax are within normal limits. There is no free intra-abdominal gas or fluid. There is been a prior cholecystectomy. The liver, adrenals, and pancreas are unremarkable, given limitations of a nonenhanced CT. The spleen is mildly enlarged measuring 14.6 x 6.3 cm in axial dimension and extends 13 cm in craniocaudal dimension. There is no hydronephrosis or renal calculi bilaterally. The bilateral kidneys are unremarkable, given limitations of a nonenhanced CT. There are no enlarged abdominal or pelvic lymph node, by size greater area. The urinary bladder is unremarkable. There are small bilateral inguinal hernias. There is evidence of prior gastric bypass surgery the appendix is normal. There is some colonic diverticulosis, without evidence of diverticulitis. There is some crisscrossing of loops of bowel, likely related to prior surgery, but there is no evidence of bowel obstruction. The remainder of the bowel is unremarkable. There is multilevel lumbar degenerative disc and facet disease. There is some mild bilateral hip osteoarthritis. The remainder the visualized bony structures are unremarkable Possible recently passed kidney stone??? Pt is comfortable now Pt feels better Will discharge to home Follow up with PMD Clinical Impression: Abdominal pain, initial presentation
[2018-11-18 20:59] LABS: ALBUMIN 3.6 g/dl (3.4-5.0); BILIRUBIN,TOTAL 0.4 mg/dL (0.2-1); BLOOD UREA NITROGEN 24.7 mg/dL (7-18); CALCIUM 8.8 mg/dL (8.5-10.1); POTASSIUM 4.1 mmol/L (3.5-5.1); TOT PROT 6.6 g/dl (6.4-8.2)
[2018-11-18 22:12] VITALS: BP 90/58; PULSE 73
--- NOTE | 2018-11-19 08:39 | EKG ---
Test Reason : Blood Pressure : / mmHG Vent. Rate : 071 BPM Atrial Rate : 085 BPM P-R Int : 000 ms QRS Dur : 146 ms QT Int : 414 ms P-R-T Axes : 000 134 021 degrees QTc Int : 449 ms ATRIAL FIBRILLATION RIGHT BUNDLE BRANCH BLOCK INFERIOR INFARCT , AGE UNDETERMINED ANTEROLATERAL INFARCT , AGE UNDETERMINED ABNORMAL ECG Confirmed by GRISEL GARDNER, DAVID ([id number]) on 11/19/2018 8:39:22 AM Referred By: Confirmed By:DAVID RECINOS MD
== END 2018-11-18 22:36 | disposition home or self-care (01) ==
LOC: JER 18:27
DX: R10.33 Periumbilical pain (principal); I25.10 Atherosclerotic heart disease of native coronary artery without angina pectoris; I11.0 Hypertensive heart disease with heart failure; Z95.5 Presence of coronary angioplasty implant and graft; I50.9 Heart failure, unspecified; I48.91 Unspecified atrial fibrillation; Z79.01 Long term (current) use of anticoagulants; Z87.442 Personal history of urinary calculi; L97.509 Non-pressure chronic ulcer of other part of unspecified foot with unspecified severity; Z79.2 Long term (current) use of antibiotics
CPT/HCPCS: 36415; 74176-TC; 80053; 81003; 83690; 85025; 87086; 93005; 93010; 96365; 99283-25